=== PATIENT | male | born 1990 | race Two or more races ===

== ENCOUNTER 2023-10-15 11:26 | Emergency (ER) | payer OTHER ==
[2023-10-15 11:39] VITALS: BP 141/80; PULSE 84; RESP 20; TEMP 98.4; BMI 31.7
[2023-10-15] MEDS ORDERED: ACETAMINOPHEN 500 MG TABLET (FP) ONE (12:29)
[2023-10-15] MEDS ORDERED: IBUPROFEN 600 MG TABLET (FP) PO ONE (12:29)
[2023-10-15] MEDS: ACETAMINOPHEN 500 MG TABLET (FP) PO ONE (12:33)
[2023-10-15] MEDS: IBUPROFEN 600 MG TABLET (FP) PO ONE (12:33)
== END 2023-10-15 13:39 | disposition home or self-care (01) ==
LOC: JER 11:26
DX: S62.636A Displaced fracture of distal phalanx of right little finger, initial encounter for closed fracture (principal); S06.0X9A Concussion with loss of consciousness of unspecified duration, initial encounter; W23.1XXA Caught, crushed, jammed, or pinched between stationary objects, initial encounter; Y92.39 Other specified sports and athletic area as the place of occurrence of the external cause; Y93.B9 Activity, other involving muscle strengthening exercises
CPT/HCPCS: 73130-TC-RT-FY; 99283-25